=== PATIENT | female | born 1930 | race Caucasian/White ===

== ENCOUNTER 2018-05-27 01:12 | Inpatient (IN) | payer OTHER ==
[2018-05-27] MEDS ORDERED: FAMOTIDINE 20 MG/2 ML VIAL IV ONE (01:38)
[2018-05-27 01:49] LABS: Protime INR 0.95
[2018-05-27 01:54] LABS: Absolute Lymphocytes (CBC) 0.3 K/uL (0.7-4.9); Absolute Monocytes 0.5 K/uL (0.1-1.3); Absolute Neutrophil 5.6 K/uL (1.8-8.0); Basophils % 0.5 % (0-1.3); Hematocrit 47.6 % (36.0-45.0); Lymphocytes % 4.3 % (15.3-44.8); MCH 32.5 pg (27.0-35.0); MCV 93.8 fL (80-100); MPV 8.5 fL (7.6-11.3); Monocytes % 7.4 % (3.3-12.3); RBC Red Blood Cell Count 5.07 M/uL (3.86-4.86)
[2018-05-27] MEDS ORDERED: ONDANSETRON 4 MG/2 ML VIAL ONE (01:56)
[2018-05-27] MEDS ORDERED: MORPHINE 4 MG/ML SYR ONE (01:56)
[2018-05-27 02:55] LABS: Albumin 4.4 g/dL (3.4-5.0); Bilirubin Direct 2.1 mg/dL (0-0.2); Bilirubin Total 3.2 mg/dL (0.2-1.0); Potassium 4.1 mmol/L (3.5-5.1); Protein, Total 7.8 g/dL (6.4-8.2); Troponin (Emerg Dept Use Only) 0.03 ng/mL (0.0-0.045)
[2018-05-27 03:00] LABS: Blood Morphology Comment NOT SEEN (NOT SEEN); Platelet Estimate ADEQ
--- NOTE | 2018-05-27 03:14 | ER ---
Nurse's Notes [facility] Name: Tenisha Green Age: 87 yrs Sex: Female : 1930 Arrival Date: 05/27/2018 Time: 01:12 Bed 5 Private MD: Jesica Fernandez H Diagnosis: Biliary acute pancreatitis Presentation: 05/27 01:14 Presenting complaint: EMS states: Increasing epigastric pain and nausea that began lp1 after dinner tonight at 1700; Denies any fever, vomiting. Transition of care: patient was not received from another setting of care. Onset of symptoms was May 26, 2018 at 17:00. Risk Assessment: Do you want to hurt yourself or someone else? Patient reports no desire to harm self or others. Initial Sepsis Screen: Does the patient meet any 2 criteria? No. Patient's initial sepsis screen is negative. Does the patient have a suspected source of infection? No. Patient's initial sepsis screen is negative. Care prior to arrival: None. 01:14 Method Of Arrival: EMS: [facility] lp1 01:14 Acuity: LOLA 3 lp1 Historical: - Allergies: 01:17 No Known Allergies; lp1 - PMHx: 01:17 Rheumatoid Arthritis; Hypertension; lp1 - PSHx: 01:17 Appendectomy; lp1 - Immunization history:: Adult Immunizations up to date. - Social history:: Smoking status: Patient/guardian denies using tobacco. - Ebola Screening: : No symptoms or risks identified at this time. Screenin:18 Abuse screen: Denies threats or abuse. Denies injuries from another. Nutritional lp1 screening: No deficits noted. Tuberculosis screening: No symptoms or risk factors identified. Fall Risk None identified. Assessment: 01:18 General: Appears uncomfortable, Behavior is appropriate for age. Pain: Complains of lp1 pain in epigastric area Pain currently is 9 out of 10 on a pain scale. Quality of pain is described as sharp, Pain began gradually. Neuro: Level of Consciousness is awake, alert, obeys commands, Oriented to person, place, situation. Cardiovascular: Patient's skin is warm and dry. Respiratory: Respiratory effort is even, unlabored, Breath sounds are clear bilaterally. GI: Abdomen is flat, Bowel sounds present X 4 quads. Abdomen is tender to palpation in epigastric area. : No signs and/or symptoms were reported regarding the genitourinary system. EENT: No signs and/or symptoms were reported regarding the EENT system. Derm: Skin is intact, Skin is dry, Skin is normal. Musculoskeletal: Circulation, motion, and sensation intact. 01:50 Reassessment: Patient vomited at this time; restless in bed, complaint of epigastric lp1 pain. 02:24 Reassessment: Patient states feeling better. General: Behavior is calm. lp1 03:00 Reassessment: Friend at bedside going home; Any questions or concerns contact Andreea at [facility] [phone]. 03:32 Reassessment: Patient returned from CT at this time. lp1 04:30 Reassessment: Patient appears in no apparent distress at this time. Patient and/or lp1 family updated on plan of care and expected duration. Pain level reassessed. Patient states comfortable; aware of pending admission. 05:26 Reassessment: Patient appears in no apparent distress at this time. No changes from lp1 previously documented assessment. Patient and/or family updated on plan of care and expected duration. Pain level reassessed. Vital Signs: 01:16 BP 166 / 90; Pulse 83; Resp 18; Temp 97.5(O); Pulse Ox 99% on R/A; Weight 58.97 kg; lp1 Height 5 ft. 5 in. (165.10 cm); Pain 9/10; 02:00 BP 148 / 66; Pulse 78; Resp 16; Pulse Ox 97% on R/A; lp1 03:00 BP 158 / 79; Pulse 86; Resp 19; Pulse Ox 95% on R/A; lp1 03:45 BP 158 / 76; Pulse 81; Resp 16; Pulse Ox 98% on R/A; lp1 04:30 BP 155 / 80; Pulse 72; Resp 13; Pulse Ox 97% on R/A; lp1 05:15 BP 155 / 85; Pulse 71; Resp 14; Pulse Ox 97% on R/A; lp1 01:16 Body Mass Index 21.63 (58.97 kg, 165.10 cm) lp1 ED Course: 01:12 Patient arrived in ED. am2 01:13 Jesica Fernandez DO is Private Physician. am2 01:14 Beverly Ng, RN is Primary Nurse. lp1 01:15 Alin Burns SENIOR SCHEDULER is PHCP. pm1 01:15 Jose Tobin MD is Attending Physician. pm1 01:16 Triage completed. lp1 01:16 Arm band placed on left wrist. lp1 01:18 Patient has correct armband on for positive identification. color television console monitor on. Pulse lp1 ox on. NIBP on. 01:37 Initial lab(s) drawn, by me, sent to lab. EKG done, by ED staff, reviewed by Jose Tobin MD. Inserted saline lock: 20 gauge in right antecubital area, using aseptic technique. Blood collected. 01:54 Radiology exam delayed due to lab results not completed at this time. (BUN/Creatinine). kw1 02:13 Radiology exam delayed due to lab results not completed at this time. (BUN/Creatinine). kw1 02:43 Radiology exam delayed due to lab results not completed at this time. (BUN/Creatinine). kw1 02:56 Notified Nurse Practitioner and/or Physician Tenter Feeder of a critical lab result(s), ast fc of 335, alt of 329. 03:12 Tania Burr MD is Hospitalizing Provider. pm1 03:[address] via stretcher. kw1 03:30 CT Abd/Pelvis - W/Contrast: IV contrast only In Process Unspecified. EDMS 03:30 CT completed. Patient tolerated procedure well. Patient moved back from CT. kw1 04:38 No provider procedures requiring assistance completed. Patient admitted, IV remains in lp1 place. Administered Medications: 01:36 Drug: Pepcid 20 mg Route: IVP; Site: right antecubital; lp1 02:01 Follow up: Response: No adverse reaction lp1 01:55 Drug: Zofran 4 mg Route: IVP; Site: right antecubital; lp1 02:23 Follow up: Response: Nausea is decreased lp1 01:55 Drug: morphine 4 mg Route: IVP; Site: right antecubital; lp1 02:23 Follow up: Response: Pain is decreased lp1 03:36 Drug: NS 0.9% 1000 ml Route: IV; Rate: 100 ml/hr; Site: right antecubital; lp1 05:21 Follow up: IV Status: Infusion continued upon admission lp1 03:37 Drug: Zosyn 3.375 grams Route: IVPB; Infused Over: 60 mins; Site: right antecubital; lp1 04:45 Follow up: IV Status: Completed infusion; IV Intake: 100ml lp1 Intake: 04:45 IV: 100ml; Total: 100ml. lp1 Outcome: 03:14 Decision to Hospitalize by Provider. pm1 04:38 Condition: stable lp1 04:38 Instructed on the need for admit. 05:25 Admitted to Tele accompanied by tech, via wheelchair, room 430, with chart, Report lp1 called to GAMA Pyle 05:42 Patient left the ED. lp1 Signatures: Dispatcher [employer] EDMS Es Cooper RN RN Beverly Ng RN RN lp1 Alin Burns, SENIOR SCHEDULER SENIOR SCHEDULER pm1 Kori Quiros am2 Bull Sanchez Kimberly kw1 Corrections: (The following items were deleted from the chart) 05:18 03:39 BP 155 / 77; lp1 lp1 05:26 05:25 Admitted to 1 lp1
--- NOTE | 2018-05-27 03:14 | EDPHYS ---
Physician Documentation [facility] Name: Tenisha Green Age: 87 yrs Sex: Female : 1930 Arrival Date: 05/27/2018 Time: 01:12 Bed 5 Private MD: Jesica Fernandez H ED Physician Jose Tobin HPI: 05/27 03:03 This 87 yrs old Female presents to ER via EMS with complaints of Abdominal pm1 Pain. 03:03 The patient presents with abdominal pain in the epigastric area. Onset: The pm1 symptoms/episode began/occurred yesterday, at 17:00. The symptoms do not radiate. Associated signs and symptoms: Pertinent negatives: nausea, vomiting, and diarrhea, chest pain, dysuria, fever, shortness of breath. The symptoms are described as achy. Modifying factors: The symptoms are alleviated by nothing, the symptoms are aggravated by food. Severity of pain: in the emergency department the pain is actually worse. The patient has not experienced similar symptoms in the past. The patient has not recently seen a physician. Patient reports onset of epigastric abdominal pain after eating bow tie pasta, spinach and carlos. Historical: - Allergies: 01:17 No Known Allergies; lp1 - PMHx: 01:17 Rheumatoid Arthritis; Hypertension; lp1 - PSHx: 01:17 Appendectomy; lp1 - Immunization history:: Adult Immunizations up to date. - Social history:: Smoking status: Patient/guardian denies using tobacco. - Ebola Screening: : No symptoms or risks identified at this time. ROS: 03:03 Constitutional: Negative for fever, chills, and weight loss, Eyes: Negative for injury, pm1 pain, redness, and discharge, ENT: Negative for injury, pain, and discharge, Neck: Negative for injury, pain, and swelling, Cardiovascular: Negative for chest pain, palpitations, and edema, Respiratory: Negative for shortness of breath, cough, wheezing, and pleuritic chest pain. 03:03 Back: Negative for injury and pain, : Negative for injury, bleeding, discharge, and swelling, MS/Extremity: Negative for injury and deformity, Skin: Negative for injury, rash, and discoloration, Neuro: Negative for headache, weakness, numbness, tingling, and seizure. 03:03 Abdomen/GI: Positive for abdominal pain, Negative for nausea, vomiting, and diarrhea. Exam: 03:03 Constitutional: This is a well developed, well nourished patient who is awake, alert, pm1 and in no acute distress. Head/Face: Normocephalic, atraumatic. Eyes: Pupils equal round and reactive to light, extra-ocular motions intact. Lids and lashes normal. Conjunctiva and sclera are non-icteric and not injected. Cornea within normal limits. Periorbital areas with no swelling, redness, or edema. ENT: Nares patent. No nasal discharge, no septal abnormalities noted. Tympanic membranes are normal and external auditory canals are clear. Oropharynx with no redness, swelling, or masses, exudates, or evidence of obstruction, uvula midline. Mucous membranes moist. Neck: Trachea midline, no thyromegaly or masses palpated, and no cervical lymphadenopathy. Supple, full range of motion without nuchal rigidity, or vertebral point tenderness. No Meningismus. Chest/axilla: Normal chest wall appearance and motion. Nontender with no deformity. No lesions are appreciated. Cardiovascular: Regular rate and rhythm with a normal S1 and S2. No gallops, murmurs, or rubs. Normal PMI, no JVD. No pulse deficits. Respiratory: Lungs have equal breath sounds bilaterally, clear to auscultation and percussion. No rales, rhonchi or wheezes noted. No increased work of breathing, no retractions or nasal flaring. 03:03 Back: No spinal tenderness. No costovertebral tenderness. Full range of motion. Skin: Warm, dry with normal turgor. Normal color with no rashes, no lesions, and no evidence of cellulitis. MS/ Extremity: Pulses equal, no cyanosis. Neurovascular intact. Full, normal range of motion. 03:03 Abdomen/GI: Inspection: abdomen appears normal, Bowel sounds: normal, Palpation: soft, moderate abdominal tenderness, in the epigastric area, mass, is not appreciated, rebound tenderness, is not appreciated. 03:03 Neuro: Orientation: is normal, Motor: is normal, moves all fours, Sensation: is normal, no obvious gross deficits. Vital Signs: 01:16 BP 166 / 90; Pulse 83; Resp 18; Temp 97.5(O); Pulse Ox 99% on R/A; Weight 58.97 kg; lp1 Height 5 ft. 5 in. (165.10 cm); Pain 9/10; 02:00 BP 148 / 66; Pulse 78; Resp 16; Pulse Ox 97% on R/A; lp1 03:00 BP 158 / 79; Pulse 86; Resp 19; Pulse Ox 95% on R/A; lp1 03:45 BP 158 / 76; Pulse 81; Resp 16; Pulse Ox 98% on R/A; lp1 04:30 BP 155 / 80; Pulse 72; Resp 13; Pulse Ox 97% on R/A; lp1 05:15 BP 155 / 85; Pulse 71; Resp 14; Pulse Ox 97% on R/A; lp1 01:16 Body Mass Index 21.63 (58.97 kg, 165.10 cm) lp1 MDM: 01:16 Patient medically screened. pm1 03:06 Data reviewed: vital signs. Data interpreted: Pulse oximetry: on room air is 97 %. pm1 Interpretation: normal. Counseling: I had a detailed discussion with the patient and/or guardian regarding: the historical points, exam findings, and any diagnostic results supporting the discharge/admit diagnosis, lab results, the need for further work-up and treatment in the hospital. 03:22 Physician consultation: Jori Rodas MD was called at 03:15, was contacted at 03:15, pm1 regarding consult, patient's condition, would like admission per Dr. Tania Burr MD Will see patient if Dr. High is available for consultation. 03:24 Physician consultation: Jori Rodas MD was contacted at 03:19, regarding Dr. Rodas pm1 contacted Dr. High and he is available to see the patient tomorrow. 03:58 Physician consultation: Tania Burr MD was called at 03:58, was contacted at 03:58, pm1 regarding admission, patient's condition. 05/27 01:23 Order name: Basic Metabolic Panel; Complete Time: 02:57 pm1 05/27 01:23 Order name: CBC with Diff; Complete Time: 03:02 pm1 05/27 01:23 Order name: Creatinine for Radiology; Complete Time: 02:00 pm1 05/27 01:23 Order name: Hepatic Function; Complete Time: 02:57 pm1 05/27 01:23 Order name: Lipase; Complete Time: 02:57 pm1 05/27 01:23 Order name: Troponin (emerg Dept Use Only); Complete Time: 02:57 pm1 05/27 01:23 Order name: PT-INR; Complete Time: 01:52 pm1 05/27 01:23 Order name: CT Abd/Pelvis - W/Contrast: IV contrast only pm1 05/27 02:00 Order name: Manual Differential; Complete Time: 03:02 EDMS 05/27 01:23 Order name: IV Saline Lock; Complete Time: 01:36 pm1 05/27 01:23 Order name: Labs collected and sent; Complete Time: 01:36 pm1 05/27 01:23 Order name: EKG; Complete Time: 01:24 pm1 05/27 01:23 Order name: EKG - Nurse/Tech; Complete Time: 01:36 pm1 05/27 03:02 Order name: NPO; Complete Time: 03:10 pm1 Administered Medications: 01:36 Drug: Pepcid 20 mg Route: IVP; Site: right antecubital; lp1 02:01 Follow up: Response: No adverse reaction lp1 01:55 Drug: Zofran 4 mg Route: IVP; Site: right antecubital; lp1 02:23 Follow up: Response: Nausea is decreased lp1 01:55 Drug: morphine 4 mg Route: IVP; Site: right antecubital; lp1 02:23 Follow up: Response: Pain is decreased lp1 03:36 Drug: NS 0.9% 1000 ml Route: IV; Rate: 100 ml/hr; Site: right antecubital; lp1 05:21 Follow up: IV Status: Infusion continued upon admission lp1 03:37 Drug: Zosyn 3.375 grams Route: IVPB; Infused Over: 60 mins; Site: right antecubital; lp1 04:45 Follow up: IV Status: Completed infusion; IV Intake: 100ml lp1 Disposition: 05/27/18 03:14 Hospitalization ordered by Tnaia Burr for Observation. Preliminary diagnosis is Biliary acute pancreatitis. - Bed requested for Telemetry/MedSurg (observation). - Status is Observation. lp1 - Condition is Stable. - Problem is new. - Symptoms have improved. UTI on Admission? No Signatures: Dispatcher [employer] EDMS Beverly Ng RN RN lp1 Perlita Silva, RN RN cg Alin Burns, EXPLOSIVES TRUCK DRIVER EXPLOSIVES TRUCK DRIVER pm1 Corrections: (The following items were deleted from the chart) 04:11 03:14 Hospitalization Ordered by Tania Burr MD for Observation. Preliminary cg diagnosis is Biliary acute pancreatitis. Bed requested for Telemetry/MedSurg (observation). Status is Observation. Condition is Stable. Problem is new. Symptoms have improved. UTI on Admission? No. pm1 05:42 04:11 05/27/2018 03:14 Hospitalization Ordered by Tania Burr MD for Observation. lp1 Preliminary diagnosis is Biliary acute pancreatitis. Bed requested for Telemetry/MedSurg (observation). Status is Observation. Condition is Stable. Problem is new. Symptoms have improved. UTI on Admission? No. cg
[2018-05-27] MEDS ORDERED: NA CHLORIDE 0.9% 0 ML ONE ×2 (03:23→03:24)
[2018-05-27] MEDS ORDERED: PIPER/TAZO/NS 3.375gm 3.375 GM/100 ML BAG ONE (03:23)
[2018-05-27] MEDS ORDERED: NA CHLORIDE 0.9% 1,000 ML ONE (03:24)
[2018-05-27] MEDS ORDERED: ONDANSETRON 4 MG/2 ML VIAL IV PRN (04:20)
[2018-05-27] MEDS ORDERED: HYDROMORPHONE HCL 1 MG/ML INJ IV PRN (04:20)
[2018-05-27] MEDS ORDERED: ACETAMINOPHEN 500 MG TAB PO PRN (04:20)
[2018-05-27] MEDS ORDERED: MAGNESIUM HYDROXIDE 8% 30 ML PO PRN (04:20)
[2018-05-27] MEDS: NA CHLORIDE 0.9% 1,000 ML IV SCH ×5 (05:00→22:43)
--- NOTE | 2018-05-27 08:01 | RAD REPORT ---
EXAM DESCRIPTION: CT - Abdomen Pelvis W Contrast - 05/27/2018 6:32 am CLINICAL HISTORY: Abdominal pain A preliminary report was provided at the time of the study and reviewed prior to final report. COMPARISON: None. TECHNIQUE: Biphasic, helical CT imaging of the abdomen and pelvis was performed following 100 ml non -ionic IV contrast. No oral contrast administered. All CT scans are performed using dose optimization technique as appropriate and may include automated exposure control or mA/KV adjustment according to patient size. FINDINGS: Lung base atelectasis present with no pleural effusion or acute infiltrate. No pericardial effusion. Heart size is slightly enlarged. Liver size is normal with no focal liver parenchymal process. No focal lesion of the spleen. Granulom atous calcifications are present. There is marked dilatation of the intrahepatic and extrahepatic lis iary tree. A 10 millimeter stone is fixed in the distal common bile duct in the head of the pancreas. No additional duct stones identified. Cholelithiasis is present. Wall thickening/ edema of the gallb ladder noted. Gallbladder is distended. No soft tissue or solid mass of the biliary tree or pancreas. Symmetric renal function is seen with no hydronephrosis or suspicious renal mass. Patient has a very large hernia. The entire stomach is intrathoracic and only partially imaged on thi s abdomen and pelvis CT study. Air, fluid and food distend the stomach. Imaged portion of the stomach shows no wall thickening or mass. 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 There is extrinsic compression at the pyloric region as the stomach re- ent ers the peritoneal cavity. This may be contributing to the distention. Prominent sigmoid diverticulosis without diverticulitis. There is moderate stool volume filling the c olon. No acute small bowel finding. No free air, free fluid or inflammatory stranding. No mass or b ulky lymphadenopathy. No omental thickening. The urinary bladder is without significant finding. No a drenal abnormality. Uterus and ovaries show no suspicious finding for age. Disc and bony degenerative changes are present. No pathologic bone process suspected. IMPRESSION: Pronounced dilatation of the entire biliary tree secondary to a 10 mm duct stone fixed a t the ampulla. Distention of the gallbladder with wall thickening and edema. Multiple gallstones are present. 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 Thi s is the nonemergent form of gastric volvulus. There is extrinsic compression at the pylorus where the bowel re- enters the peritoneal cavity. This likely contributes to the distended stomach. The stomach is not completely evaluated on this study. Moderate stool volume throughout the colon with moderate sigmoid diverticulosis. No diverticulitis.
[2018-05-27] MEDS ORDERED: PNEUMOCOCCAL VACCINE 0.5 ML IMVAC ONE (09:00)
[2018-05-27] MEDS ORDERED: INFLUENZA VACCINE (for 3y+) 0.5 ML DOSE IMVAC ONE (09:00)
[2018-05-27] MEDS ORDERED: ENOXAPARIN 30 MG/0.3 ML SQ SCH (09:00)
--- NOTE | 2018-05-27 10:03 | EKG ---
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
[2018-05-27 12:03] LABS: Urine Appearance CLEAR; Urine Bilirubin NEGATIVE (NEG); Urine Blood TRACE (NEG); Urine Color DK YELLOW; Urine Glucose NEGATIVE (NEG); Urine Protein NEGATIVE (NEG); Urine Specific Gravity >=1.030 (1.005-1.030)
[2018-05-27 12:34] LABS: Urine Bacteria NONE SEEN /HPF (<20); Urine RBC <5 /HPF (NONE SEEN)
[2018-05-27 12:35] LABS: Urine Culture Reflex Order NOT NEEDED
--- NOTE | 2018-05-27 14:30 | CON ---
Date of Consultation: 05/27/2018 PREOPERATIVE CONSULTATION NOTE Brief History Of Present Illness: The patient is an 87-year-old female who presents via EM S to the emergency room here with abdominal pain beginning approximately at 5 p.m. yesterday. She wa s eating a bowl of pasta and thought that she over ate and had significant abdominal pain in a band-l carly distribution in the epigastrium. She has never had similar episodes before in the past. Her landon n lasted until she received morphine in the emergency room, at which point, it subsided significantly . She has symptomatic improvement and complete resolution of her symptoms at this time. She did hav e some nausea, vomiting, diarrhea at home. Her pain was more achy in the band-like distribution. Th ere were no other aggravating or alleviating factors. She did not try to take any other p.o. meals o r liquids prior to her presentation at the hospital. Past Medical History: Significant for rheumatoid arthritis, hypertension, and a large hiatal hernia. Past Surgical History: Appendectomy. Allergies: NO KNOWN DRUG ALLERGIES. Home Medications: Lisinopril only. Social History: She denies smoking, alcohol, recreational drug use. Review of Systems: A 10-point review of systems other than HPI denies. Physical Examination: Vital Signs: At the time of my examination, her BMI is approximately 20, blood pressure 123/59, puls e is 67, respiratory rate 16, temperature 98.9. General: She is awake, alert, and oriented. Psychiatric: She is appropriate and conversive. HEENT: She is normocephalic. Sclerae are anicteric. Mucous membranes are moist. Oropharynx is manjit ar. Neck: Supple. No JVD. Chest: Normal expansion, excursion. Cardiovascular: Regular rate and rhythm. Pulmonary: Clear to auscultation bilaterally. Abdomen: Soft, nontender, nondistended. No rebound. No guarding. No focal peritonitis. Werner si gn is negative. No Sage Bobo or [place] signs. Extremities: No clubbing, cyanosis, or edema. Skin: Warm and dry. Laboratory Data: Reveals a white blood count of 6.4, hemoglobin 16.5, hematocrit of 47.6, platelet c ount is 193, neutrophils 87%. She had 86 segmented neutrophils and 8 bands. PT 11.2, INR 0.95. Sod ium 141, potassium 4.1, chloride 106, carbon dioxide 25, BUN 20, creatinine 0.8, glucose 157, total b ilirubin 3.2, direct 2.1, AST 335, ALT 329, alkaline phosphatase is 183, lipase was 23,735. She had a CT scan performed on the abdomen and pelvis, which confirms a pronounced dilatation of the entire b iliary tree secondary to a 10 mm duct stone fixed at the ampulla. Distension of the gallbladder with wall thickening and edema. Multiple gallstones are present. 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 Extrinsic compression of the pylorus where the bowel re-enters the peritoneal cavity, likely contr ibutes to the distended stomach. The stomach is not completely evaluated on this study. Moderate st ool throughout the colon with moderate sigmoid diverticulosis. No diverticulitis. Assessment And Plan: This is an 87-year-old female who comes in with choledocholithiasis, causing ga llstone pancreatitis. 1.IV fluid hydration. 2.Antibiotic coverage. 3.N.p.o. status. 4.The patient will require ERCP. Dr. High has been consulted to evaluate the patient to see for e valuation of possible ERCP. 5.I have explained the risks, benefits, and alternatives of laparoscopic, possible open cholecystect pita following resolution of her pancreatitis and sweeping of her biliary tree including, but not limi john to bleeding, infection, damage to surrounding tissues, injury to bile ducts, intestines, need of further operation or procedures. The patient agrees to pro ceed as indicated. MARIE/NATALIE Voice ID: [id number] Report ID: [id number]
[2018-05-28 04:52] LABS: ALT/SGPT 215 U/L (12-78); AST/SGOT 150 U/L (15-37); Alkaline Phosphatase 131 U/L (45-117); BUN Blood Urea Nitrogen 23 mg/dL (7-18); Bicarbonate 26 mmol/L (21-32); Glucose Level 71 mg/dL (74-106); Lipase 451 U/L (73-393); Magnesium 2.2 mg/dL (1.8-2.4); Phosphorus 2.4 mg/dL (2.5-4.9); Potassium 3.5 mmol/L (3.5-5.1); Protein, Total 5.5 g/dL (6.4-8.2); Sodium Level 147 mmol/L (136-145)
[2018-05-28 05:11] LABS: Absolute Lymphocytes (CBC) 0.5 K/uL (0.7-4.9); Absolute Monocytes 0.3 K/uL (0.1-1.3); Absolute Neutrophil 2.3 K/uL (1.8-8.0); Basophils % 1.4 % (0-1.3); Eosinophils % 1.7 % (0-4.4); Hematocrit 38.7 % (36.0-45.0); MCH 32.3 pg (27.0-35.0); MCV 95.7 fL (80-100); MPV 9.3 fL (7.6-11.3); Monocytes % 9.6 % (3.3-12.3); RBC Red Blood Cell Count 4.05 M/uL (3.86-4.86)
[2018-05-28] MEDS: NA CHLORIDE 0.9% 1,000 ML IV SCH ×2 (07:00→14:52)
[2018-05-28] MEDS ORDERED: POTASSIUM PHOS IN 0.9 % NACL 15 MMOL/250 ML BAG IV ONE (07:30)
--- NOTE | 2018-05-28 13:28 | P.PN ---
Subjective Date of Service: 05/28/18 Chief Complaint: abdominal pain Patient seen and examined at bedside. Sister in law at bedside. Patient reports no abdominal pain, nausea or vomiting today. Denies any fevers overnight. Continues to be NPO. Would like to go home. Review of Systems 10-point ROS is otherwise unremarkable Physical Examination - Vital Signs Temperature: 98.2 F Blood Pressure: 149/70 Pulse: 66 Respirations: 16 Pulse Ox (%): 98 - Physical Exam General: Alert, In no apparent distress HEENT: Atraumatic, PERRLA, EOMI Neck: Supple, JVD not distended Respiratory: Clear to auscultation bilaterally, Normal air movement Cardiovascular: Regular rate/rhythm, Normal S1 S2 Gastrointestinal: Normal bowel sounds, No tenderness Musculoskeletal: No tenderness Integumentary: No rashes Neurological: Normal speech, Normal tone, Normal affect Lymphatics: No axilla or inguinal lymphadenopathy - Studies Medications List Reviewed: Yes Assessment And Plan - Current Problems (Diagnosis) (1) Choledocholithiasis with obstruction Current Visit: Yes Status: Acute Plan: CT scan with 1 cm stone in ampulla. Continue NPO. GI consulted, though likely unable to do ERCP at our hospital. Patient needs ERCP prior to cholecystectomy as she has evidence of pancreatitis. Will attempt to transfer patient to [place] for ERCP and potential cholecystectomy. (2) Pancreatitis Onset Date: 05/28/18 Current Visit: Yes Status: Acute Plan: See plan above (3) Hypertension Current Visit: Yes Status: Acute Plan: Restart home lisinopril
[2018-05-28 14:23] VITALS: BP 149/70; TEMP 98.2; O2SAT 98; BMI 20.5
--- NOTE | 2018-05-28 14:47 | P.HP ---
Patient History Date of Service: 05/28/18 Reason for admission: abdominal pain History of Present Illness: This is a 70-year-old female with a past medical history of hypertension admitted for abdominal pain that started this 5:00 p.m. prior to the day of admission. She was eating some pasta and Dr. over 8 and had progressively worsening abdominal pain in a bandlike distribution in the epigastric area. It is the pain was constant until she received some morphine in the ER. She states that she has never had anything like this before. This pain was associated with nausea vomiting and diarrhea. Aggravated or alleviated by nothing. Allergies No Known Allergies Allergy (Unverified 05/27/18 06:06) Home Medications: Lisinopril 10 mg PO BEDTIME 05/27/18 - Past Medical/Surgical History Has patient received pneumonia vaccine in the past: No Diabetic: No -: HTN -: Appey -: Hysterectomy - Family History Mother -: Stroke - Social History Smoking Status: Never smoker Alcohol use: No CD- Drugs: No Caffeine use: Yes Place of Residence: Home Review of Systems General: Unremarkable Eyes: Unremarkable ENT: Unremarkable Respiratory: Unremarkable Cardiovascular: Unremarkable Gastrointestinal: Nausea, Vomiting, Abdominal Pain, Diarrhea, As per HPI Musculoskeletal: Unremarkable Integumentary: Unremarkable Neurological: Unremarkable Lymphatics: Unremarkable Physical Examination - Vital Signs Temperature: 98.2 F Blood Pressure: 149/70 Pulse: 66 Respirations: 16 Pulse Ox (%): 98 - Physical Exam General: Alert, Moderate distress HEENT: Atraumatic, PERRLA, Mucous membr. moist/pink, EOMI, Sclerae nonicteric Neck: Supple, 2+ carotid pulse no bruit, No LAD, Without JVD or thyroid abnormality Respiratory: Clear to auscultation bilaterally, Normal air movement Cardiovascular: Regular rate/rhythm, Normal S1 S2 Gastrointestinal: Tenderness Musculoskeletal: No tenderness Integumentary: No rashes Neurological: Normal gait, Normal speech, Normal strength at 5/5 x4 extr, Normal tone, Normal affect Lymphatics: No axilla or inguinal lymphadenopathy Assessment and Plan - Problems (Diagnosis) (1) Choledocholithiasis with obstruction Current Visit: Yes Status: Acute Plan: CT scan with 1 cm stone in ampulla. Continue NPO. GI consulted, though likely unable to do ERCP at our hospital. Patient needs ERCP prior to cholecystectomy as she has evidence of pancreatitis. Will attempt to transfer patient to [place] for ERCP and potential cholecystectomy. (2) Pancreatitis Onset Date: 05/28/18 Current Visit: Yes Status: Acute Plan: See plan above (3) Hypertension Current Visit: Yes Status: Acute Plan: Restart home lisinopril Discharge Plan: Home Plan to discharge in: Greater than 2 days - Advance Directives Does patient have a Living Will: No Does patient have a Durable POA for Healthcare: No
--- NOTE | 2018-05-28 16:50 | P.SSS ---
Patient History Date of Service: 05/28/18 Reason for admission: abdominal pain History of Present Illness: This is a 70-year-old female with a past medical history of hypertension admitted for abdominal pain that started this 5:00 p.m. prior to the day of admission. She was eating some pasta and Dr. over 8 and had progressively worsening abdominal pain in a bandlike distribution in the epigastric area. It is the pain was constant until she received some morphine in the ER. She states that she has never had anything like this before. This pain was associated with nausea vomiting and diarrhea. Aggravated or alleviated by nothing. Allergies No Known Allergies Allergy (Unverified 05/27/18 06:06) Home Medications: Lisinopril 10 mg PO BEDTIME 05/27/18 - Past Medical/Surgical History Has patient received pneumonia vaccine in the past: No Diabetic: No -: HTN -: Appey -: Hysterectomy - Family History Mother -: Stroke - Social History Smoking Status: Never smoker Alcohol use: No CD- Drugs: No Caffeine use: Yes Place of Residence: Home Review of Systems 10-point ROS is otherwise unremarkable Physical Examination - Vital Signs Temperature: 98.2 F Blood Pressure: 149/70 Pulse: 66 Respirations: 16 Pulse Ox (%): 98 - Physical Exam General: Alert, In no apparent distress HEENT: Atraumatic, PERRLA, Mucous membr. moist/pink, EOMI, Sclerae nonicteric Neck: Supple, 2+ carotid pulse no bruit, No LAD, Without JVD or thyroid abnormality Respiratory: Clear to auscultation bilaterally, Normal air movement Cardiovascular: Regular rate/rhythm, Normal S1 S2 Gastrointestinal: Normal bowel sounds, No tenderness Musculoskeletal: No tenderness Integumentary: No rashes Neurological: Normal gait, Normal speech, Normal strength at 5/5 x4 extr, Normal tone, Normal affect Lymphatics: No axilla or inguinal lymphadenopathy - Diagnosis (Problem(s)) (1) Choledocholithiasis with obstruction Current Visit: Yes Status: Acute Plan: CT scan with 1 cm stone in ampulla. Continue NPO. GI consulted, though likely unable to do ERCP at our hospital. Patient needs ERCP prior to cholecystectomy as she has evidence of pancreatitis. Transfer patient to [place] for ERCP and potential cholecystectomy. (2) Pancreatitis Onset Date: 05/28/18 Current Visit: Yes Status: Acute Plan: See plan above (3) Hypertension Current Visit: Yes Status: Acute Plan: Restart home lisinopril - Disposition Disposition: TRANSFER TO [facility] Condition: GOOD
[2018-05-28] MEDS ORDERED: LISINOPRIL 10 MG TAB PO SCH (21:00)
== END 2018-05-28 19:08 | disposition short-term general hospital (02) | DRG 444 ==
LOC: ER 01:12 → ERHOLD 03:39 → 4TH 05:31 → OBSVTOIN 14:24
PROVIDERS: ADMIT Hospitalist; ATTEND Family Medicine
DX: K80.51 Calculus of bile duct without cholangitis or cholecystitis with obstruction (principal); K85.80 Other acute pancreatitis without necrosis or infection; I10 Essential (primary) hypertension; M06.9 Rheumatoid arthritis, unspecified; K44.9 Diaphragmatic hernia without obstruction or gangrene
CPT/HCPCS: 36415; 74177; 80048; 80053; 80076; 81001; 83690; 83735; 84100; 84484; 85025; 85610; 93005; 96361; 96365; 96375; 99285; J1650; J2405; J2543; J7030; Q9967